=== PATIENT | male | born 2000 | race Caucasian/White ===

== ENCOUNTER 2025-03-31 13:20 | Emergency (ER) | payer SELFPAY ==
[2025-03-31] MEDS ORDERED: Mag-Al 1200 mg/1200 mg/30 ML UDCUP ONE (15:20)
[2025-03-31] MEDS ORDERED: Famotidine 20 MG TAB ONE (15:21)
== END 2025-03-31 16:01 | disposition home or self-care (01) ==
LOC: CSHERS 13:20
DX: R11.2 Nausea with vomiting, unspecified (principal)
CPT/HCPCS: 70360; 71046; Q0162